=== PATIENT | female | born 1995 | race Hispanic/Latino ===

== ENCOUNTER 2021-08-26 21:52 | Outpatient (CLI) | payer OTHER ==
[2021-08-26 22:27] VITALS: BP 120/79
--- NOTE | 2021-08-27 01:13 | Ultrasound Report ---
ULTRASOUND BIOPHYSICAL PROFILE INDICATION / CLINICAL INFORMATION: decreased movement. Clinical Gestational Age (GA) in weeks, days: 30 weeks 5 days TECHNIQUE: Transabdominal. COMPARISON: None available. FINDINGS: BREATHING MOVEMENT = 2 GROSS BODY MOVEMENT = 2 TONE = 2 QUALITATIVE AMNIOTIC FLUID VOLUME = 2 TOTAL BIOPHYSICAL SCORE = 8/8 HEART RATE (beats per minute): 137 PRESENTATION: Cephalic. ADDITIONAL FINDINGS: None. IMPRESSION: 1. Biophysical Score = 8/8 Signer Name: Louisa Etienne MD Signed: 08/27/2021 1:08 AM Workstation Name: [id number]
== END 2021-08-27 01:39 | disposition home or self-care (01) ==
LOC: TRG 21:52 → APU 21:53 → TRG 08-27 01:39
PROVIDERS: ATTEND Obstetrics & Gynecology
DX: O26.893 Other specified pregnancy related conditions, third trimester (principal); R10.9 Unspecified abdominal pain; Z3A.30 30 weeks gestation of pregnancy
CPT/HCPCS: 59025; 76819

== ENCOUNTER 2021-09-20 19:01 | Outpatient (CLI) | payer OTHER ==
[2021-09-20] MEDS ORDERED: LACTATED RINGERS 500 ML IV ONE (19:17)
[2021-09-20 20:10] LABS: Bilirubin,Urine NEG (Negative); Blood,Urine NEG (Negative); Color,Urine Yellow (Yellow); Protein,Urine <15 mg/dL mg/dL (Negative); RBC,Urine < 1.0 /HPF (0.0-6.0); Urobilinogen,Urine < 2.0 mg/dL (<2.0)
[2021-09-20 20:12] LABS: WBC,Urine < 1.0 /HPF (0.0-6.0)
[2021-09-20] MEDS ORDERED: ACETAMINOPHEN 500 MG TAB PO ONE (20:45)
[2021-09-20 20:49] VITALS: BP 126/65
== END 2021-09-20 21:16 | disposition home or self-care (01) ==
LOC: TRG 19:01 → APU 19:03 → TRG 21:16
PROVIDERS: ATTEND Obstetrics & Gynecology
DX: O29.43 Spinal and epidural anesthesia induced headache during pregnancy, third trimester (principal); Z3A.34 34 weeks gestation of pregnancy
CPT/HCPCS: 81001

== ENCOUNTER 2021-10-13 11:51 | Inpatient (IN) | payer OTHER ==
[2021-10-13] MEDS ORDERED: MAGNESIUM SULFATE 4 GM/100 ML BAG IV ONE (11:58)
[2021-10-13] MEDS ORDERED: LACTATED RINGERS 1,000 ML IV SCH (12:00)
[2021-10-13] MEDS ORDERED: MAGNESIUM SULFATE 40GM/1000ML 40 GM/1,000 ML BAG IV SCH (12:00)
--- NOTE | 2021-10-13 12:21 | History and Physical Report ---
History of Present Illness Date of examination: 10/13/21 Date of admission: 10/13/21 11:58 History of present illness: pt presents for post problem vsit: c/o Headaches in the back of the head, shaking, feet and leg swelling, neck pain. BP after checking 165/100. @10:45a 176/97 per pt... ...................................................................Ramya Soares October 13, 2021 11:31 AM Mask, Patient denies fever, cough, shortness of breath and exposure to COVID-19. Sending patient to L&D for treatment of pre-e. Bed control called for admission ................ ...................................................Carmela Demarcus BURRELL October 13, 2021 11:44 AM Vital Signs: Patient Profile: 26 Years Old Female Height: 64 inches Weight: 216 pounds BMI: 37.07 Temp: 97.6 degrees F BP sittin / 96 (left arm) Past Medical History: Reviewed and updated today: Negative Past Medical History Past Surgical History: Reviewed and updated today: Appendectomy (2017) Right Shoulder (2018) Family History Summary: Other Family Member - Has No Family History of Ovarvian Cancer - Entered On: 03/31/2021 Other Family Member - Has No Family History of Colon Cancer - Entered On: 03/31/2021 Other Family Member - Has No Family History of Breast Cancer - Entered On: 03/31/2021 Social History: Marital Status:( same sex) Children: 0 Occupation: unemployed Smoking History: Patient is a former smoker. 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 Infection History Hx of STD: none Partner hx. of genital herpes: no Genetic History Congenital Heart Defect: Mom: no Dad: no Joey Disease: Mom: no Dad: no Thalassemia Mom: no Dad: no Neural Tube Defect Mom: no Dad: no Down's Syndrome Mom: no Dad: no Douglas-Sachs Mom: no Dad: no Sickle Cell Disease/Trait Mom: no Dad: no Hemophilia Mom: no Dad: no Muscular Dystrophy Mom: no Dad: no Cystic Fibrosis Mom: no Dad: no Monae Chorea Mom: no Dad: no Mental Retardation Mom: no Dad: no Fragile X Mom: no Dad: no Other Genetic/Chromosomal Disorder Mom: no Dad: no Child w/other defect Mom: no Dad: no Enviromental Exposures Xray Exposure: no Medication, drug, or alcohol use since LMP: no Chemical/Other Exposure: no Exposure to Cat Liter: yes Hx of Parvovirus (Fifth Disease): no Current Allergies (reviewed today): No known allergies Past History Past Medical History: other (SEE HPI) Past Surgical History: other (SEE HPI) 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: other (SEE HPI) Social history: other (SEE HPI) - Obstetrical History : 1 Medications and Allergies Allergies Allergy/AdvReac Type Severity Reaction Status Date / Time No Known Allergies Allergy Unverified 10/13/21 12:35 Home Medications Medication Instructions Recorded Confirmed Last Taken Type Ibuprofen [Motrin 800 MG tab] 800 mg PO Q8HR #30 tablet 10/11/21 10/13/21 10/12/21 20:30 Rx Active Meds: Active Medications Lactated Ringer's (Lactated Ringers) 1,000 mls @ 125 mls/hr IV DIRECT RAOUL Magnesium Sulfate (Magnesium Sulfate 4gm/100ml) 4 gm in 100 mls @ 300 mls/hr IV ONCE ONE Stop: 10/13/21 12:17 Magnesium Sulfate (Magnesium Sulfate 40gm/1000ml) 40 gm in 1,000 mls @ 50 mls/hr IV DIRECT RAOUL Labetalol HCl (Labetalol 200 Mg Tab) 200 mg PO BID RAOUL Review of Systems Eyes: blurred vision Cardiovascular: high blood pressure, leg edema Breasts: normal Genitourinary: deferred Rectal Exam: deferred Musculoskeletal: neck pain Neurological: headaches - Physical Exam Breasts: Positive: normal Abdomen: Positive: normal appearance, soft Extremities: Positive: edema Results Result Diagrams: 10/13/21 12:25 10/13/21 12:25 All other labs normal. Assessment and Plan Pt post 10/10/2021, presents to day with complaint of PARKER, visual d isturbances, BLE edema. Pt dx with GHTN during . new dx pre-e d/t cerebral symptoms. Admission orders in EMR. - Patient Problems (1) Pre-eclampsia, Current Visit: Yes Status: Acute Plan to address problem: Direct admit L&D Start 24 hr Mag Labetolol 200mg BID PO monitor symptoms Strict I&Os
[2021-10-13 13:09] LABS: Hematocrit 30.9 % (30.3-42.9); Hemoglobin 10.7 gm/dl (10.1-14.3); Mean Corpuscular HGB Conc 35 % (30-34); Mean Corpuscular Volume 94 fl (79-97); Platelet Count 220 K/mm3 (140-440); Red Cell Distribution Width 14.1 % (13.2-15.2)
[2021-10-13 13:29] LABS: Bilirubin,Urine NEG (Negative); Blood,Urine SM (Negative); Color,Urine Colorless (Yellow); Protein,Urine <15 mg/dL mg/dL (Negative); RBC,Urine < 1.0 /HPF (0.0-6.0); Urobilinogen,Urine < 2.0 mg/dL (<2.0)
[2021-10-13 13:33] LABS: Alanine Aminotransferase 12 units/L (7-56)
[2021-10-13] MEDS ORDERED: ACETAMINOPHEN 500 MG TAB PO ONE (13:39)
[2021-10-13] MEDS ORDERED: IBUPROFEN 800 MG TAB PO ONE (15:45)
[2021-10-13] MEDS ORDERED: HYDROcodone/ACETAMINOPHEN 5-325 MG TAB PO ONE (19:37)
[2021-10-13] MEDS ORDERED: IBUPROFEN 800 MG TAB PO PRN (20:12)
--- NOTE | 2021-10-14 00:28 | XRay Report ---
XR chest 1V ap INDICATION / CLINICAL INFORMATION: DECREASED SPO2. COMPARISON: None available. FINDINGS: SUPPORT DEVICES: None. HEART /PULMONARY VASCULATURE: Heart is accentuated by low lung volumes. Pulmonary vasculature appears congested. LUNGS / PLEURA: Mild patchy pulmonary opacities are present within the lungs, most pronounced in the right lung base. No sizable pleural effusion. No pneumothorax. IMPRESSION: Pulmonary vasculature congestion with mild basilar predominant parenchymal opacities in the lungs, fa vored to reflect edema. Unable to exclude superimposed pneumonia. Signer Name: Bashir Peralta MD Signed: 10/14/2021 12:23 AM Workstation Name: [id number]
--- NOTE | 2021-10-14 01:30 | Event Note ---
Date: 10/14/21 Pt noted to be breathing harder than normal, sats 93-98% on RA while sitting up but decreasing to the 80's while laying down. CXR shows lungs with vascular congestion and edema. Dr. Santillan made aware. Magnesium sulfate d/c'd. Lasix 40MG qday along with RENEE. Tiago to remain in place for accurate I&O. Cardiology consulted. Discussed plan of care with patient, all questions addressed.
[2021-10-14] MEDS: FUROSEMIDE 40 MG/4 ML INJ IV SCH ×2 (01:36→10:23)
[2021-10-14] MEDS ORDERED: BENZOCAINE/MENTHOL 20/0.5% TOP SPRAY 56 GM TP PRN (01:48)
[2021-10-14 01:57] LABS: Alanine Aminotransferase 13 units/L (7-56); Albumin 3.1 g/dL (3.9-5); Blood Urea Nitrogen 8 mg/dL (7-17); Calcium 7.5 mg/dL (8.4-10.2); Hemolysis Index 0
[2021-10-14 01:59] LABS: BUN/Creatinine Ratio 11
[2021-10-14] MEDS: BUTALB/ACETAMINOPHEN/CAFFEINE TAB PO PRN ×4 (02:23→20:56)
--- NOTE | 2021-10-14 07:32 | Progress Note ---
Assessment and Plan A: 26 y.o. s/p , re-admission for pre eclampsia. - Patient Problems (1) Pre-eclampsia, Current Visit: Yes Status: Acute Plan to address problem: Continue with care on labor and delivery. Awaiting cardiology consult and recommendations. Continue with O2 via NC for now. Continue to monitor blood pressures. Continue to monitor for s/sx of worsening pre elcampsia. Continue with Labetalol 200mg BID. Subjective - Subjective Date of service: 10/14/21 Principal diagnosis: readmit for pre eclampsia Interval history: Pt denies shortness of breath, upper abdominal pain, chest pain,feeling lightheaded, dizzy, or heart palpitations. Has a PARKER and states medications are not helping. : doing well Objective - Vital Signs Latest vital signs: Vital Signs Temp Pulse Resp BP BP Pulse Ox Pulse Ox 10/14/21 07:26 77 97 10/14/21 07:21 80 97 10/14/21 07:16 76 96 10/14/21 07:11 74 95 10/14/21 07:08 87 94 10/14/21 07:06 72 95 10/14/21 07:01 68 95 10/14/21 07:00 75 94 10/14/21 06:56 81 97 10/14/21 06:54 77 93 10/14/21 06:52 77 142/86 10/14/21 06:51 66 96 10/14/21 06:46 71 95 10/14/21 06:41 70 94 10/14/21 06:36 70 91 10/14/21 06:34 72 94 10/14/21 06:31 74 96 10/14/21 06:28 69 94 10/14/21 06:26 64 95 10/14/21 06:21 68 95 10/14/21 06:16 70 95 10/14/21 06:11 72 95 10/14/21 06:06 74 96 10/14/21 06:01 76 97 10/14/21 05:56 76 96 10/14/21 05:51 74 143/77 95 10/14/21 05:46 75 95 10/14/21 05:41 77 95 10/14/21 05:37 76 96 10/14/21 05:31 76 96 10/14/21 05:28 85 129/76 10/14/21 05:27 81 96 10/14/21 05:21 79 97 10/14/21 05:20 76 92 10/14/21 05:16 70 97 10/14/21 05:11 69 97 10/14/21 05:06 73 96 10/14/21 05:02 69 95 10/14/21 04:57 74 96 10/14/21 04:52 84 95 10/14/21 04:47 69 96 10/14/21 04:41 67 96 10/14/21 04:37 79 97 10/14/21 04:32 68 96 10/14/21 04:27 71 97 10/14/21 04:22 80 97 10/14/21 04:18 75 94 10/14/21 04:16 76 97 10/14/21 04:11 78 94 10/14/21 04:07 72 96 10/14/21 04:02 84 97 10/14/21 03:57 75 94 10/14/21 03:52 74 94 10/14/21 03:51 71 134/74 94 10/14/21 03:47 76 95 10/14/21 03:42 74 94 10/14/21 03:37 74 94 10/14/21 03:35 72 94 10/14/21 03:32 73 95 10/14/21 03:28 71 94 10/14/21 03:27 71 95 10/14/21 03:22 72 95 10/14/21 03:17 70 95 10/14/21 03:12 71 95 10/14/21 03:07 73 94 10/14/21 03:02 69 95 10/14/21 03:01 71 94 10/14/21 02:57 78 95 10/14/21 02:56 72 94 10/14/21 02:52 73 93 10/14/21 02:51 73 136/79 10/14/21 02:47 77 94 10/14/21 02:42 77 94 10/14/21 02:37 78 94 10/14/21 02:36 76 94 10/14/21 02:32 82 95 10/14/21 02:27 76 96 10/14/21 02:22 74 95 10/14/21 02:17 72 95 10/14/21 02:12 76 94 10/14/21 02:07 76 96 0223/22 02:02 76 96 10/14/21 01:57 76 96 10/14/21 01:52 67 150/77 97 10/14/21 01:47 71 99 10/14/21 01:42 78 100 10/14/21 01:37 77 100 10/14/21 01:32 73 99 10/14/21 01:27 82 90 10/14/21 01:22 78 87 10/14/21 01:17 82 89 10/14/21 01:12 83 90 10/14/21 01:07 80 91 10/14/21 01:02 79 90 10/14/21 00:58 98.3 F 10/14/21 00:57 89 89 10/14/21 00:56 88 10/14/21 00:52 80 88 10/14/21 00:51 76 132/78 10/14/21 00:47 77 88 10/14/21 00:42 78 88 10/14/21 00:36 80 89 10/14/21 00:32 84 89 10/14/21 00:27 88 93 10/14/21 00:22 78 92 10/14/21 00:17 80 90 10/14/21 00:12 85 94 10/14/21 00:10 90 10/14/21 00:07 76 86 10/14/21 00:03 77 149/76 10/14/21 00:02 79 86 10/13/21 23:57 79 85 10/13/21 23:52 79 87 10/13/21 23:51 78 160/79 10/13/21 23:47 78 88 10/13/21 23:42 79 88 10/13/21 23:37 80 89 10/13/21 23:32 79 90 10/13/21 23:27 82 90 10/13/21 23:22 79 89 10/13/21 23:17 87 91 10/13/21 23:16 91 10/13/21 23:11 81 92 10/13/21 23:06 80 91 10/13/21 23:05 78 94 10/13/21 23:01 84 90 10/13/21 22:56 84 90 10/13/21 22:51 77 139/78 10/13/21 22:50 80 87 02/22/22 22:46 79 88 0222 22:41 80 90 0222/22 22:36 83 91 0222/22 22:31 84 90 0222 22:26 83 91 02/22 22:21 83 91 0222 22:16 83 91 02/22 22:11 80 91 02/22 22:06 84 92 0222/22 22:01 80 92 0222 21:56 82 92 0222 21:51 80 136/79 93 0222/22 21:46 80 92 0222/22 21:41 80 92 02/22 21:36 80 94 0222 21:31 76 96 0222 21:26 80 94 0222 21:25 79 94 02/22 21:21 78 94 0222 21:16 79 94 02/22 21:11 82 96 02/22 21:09 86 94 0222 21:06 79 93 0222 21:01 77 94 0222 21:00 78 94 0222 20:56 77 95 02/22 20:53 83 93 0222/22 20:51 74 139/76 96 02/22 20:46 78 95 02/22 20:41 81 96 022222 20:36 81 95 02/22 20:35 80 94 02/22 20:31 83 94 02/22 20:28 83 94 0222 20:26 86 95 0222 20:22 88 94 0222/22 20:21 81 93 0222/22 20:16 84 94 0222/22 20:13 93 0222/22 20:11 79 93 02/22 20:06 80 93 02/22 20:02 79 93 02/22 20:01 86 93 0222/22 19:56 83 94 0222/22 19:55 89 94 0222/22 19:51 80 123/74 92 02/22/22 19:46 85 93 0222/22 19:41 84 92 0222/22 19:36 82 94 022222 19:31 86 92 02/22 19:29 86 93 10/13/21 19:26 85 90 10/13/21 19:21 85 91 10/13/21 19:16 84 92 10/13/21 19:11 83 93 10/13/21 19:09 84 94 10/13/21 19:06 83 94 10/13/21 19:03 83 94 10/13/21 19:01 84 93 10/13/21 18:57 93 10/13/21 18:56 98.0 F 80 14 138/74 95 95 10/13/21 18:51 78 138/76 95 10/13/21 18:47 81 94 10/13/21 18:46 81 96 10/13/21 18:41 82 97 10/13/21 18:36 81 98 10/13/21 18:31 82 97 10/13/21 18:26 83 97 10/13/21 18:21 78 97 10/13/21 18:16 85 97 10/13/21 18:11 86 96 10/13/21 18:06 85 97 10/13/21 18:01 82 97 10/13/21 17:56 87 97 10/13/21 17:51 80 135/81 97 10/13/21 17:46 78 97 10/13/21 17:41 79 98 10/13/21 17:36 97.6 F 84 14 134/82 134/82 97 10/13/21 17:31 84 97 10/13/21 17:26 84 97 10/13/21 17:21 87 97 10/13/21 17:16 77 97 10/13/21 17:11 87 96 10/13/21 17:10 92 H 93 10/13/21 17:06 85 95 10/13/21 17:02 75 154/91 94 10/13/21 17:01 84 96 10/13/21 16:56 76 97 10/13/21 16:54 78 94 10/13/21 16:51 79 151/92 94 10/13/21 16:46 77 94 10/13/21 16:41 85 94 10/13/21 16:36 82 95 10/13/21 16:34 78 94 10/13/21 16:31 74 95 10/13/21 16:28 81 94 10/13/21 16:26 83 93 0222/22 16:21 79 96 10/13/21 16:19 79 94 10/13/21 16:16 74 95 10/13/21 16:11 76 95 10/13/21 16:10 78 93 10/13/21 16:06 76 93 10/13/21 16:04 73 94 10/13/21 16:01 76 95 10/13/21 16:00 14 10/13/21 15:58 79 93 10/13/21 15:56 83 97 10/13/21 15:51 74 148/87 98 10/13/21 15:46 72 97 10/13/21 15:41 76 96 10/13/21 15:40 75 94 10/13/21 15:36 77 95 10/13/21 15:34 75 94 10/13/21 15:31 78 97 10/13/21 15:26 81 94 10/13/21 15:21 81 94 10/13/21 15:20 83 94 10/13/21 15:16 82 94 10/13/21 15:14 78 94 10/13/21 15:11 75 96 10/13/21 15:06 75 95 10/13/21 15:04 74 94 10/13/21 15:01 74 96 10/13/21 15:00 98.0 F 14 10/13/21 14:56 76 98 10/13/21 14:51 73 95 10/13/21 14:46 78 94 10/13/21 14:41 77 96 10/13/21 14:38 74 138/75 10/13/21 14:36 76 94 10/13/21 14:31 82 95 10/13/21 14:30 81 94 10/13/21 14:26 78 96 10/13/21 14:24 79 94 10/13/21 14:21 80 94 10/13/21 14:19 85 93 10/13/21 14:16 84 94 10/13/21 14:14 89 94 10/13/21 14:11 85 94 10/13/21 14:07 84 94 10/13/21 14:06 83 96 10/13/21 14:01 81 97 10/13/21 14:00 16 10/13/21 13:59 82 137/77 10/13/21 13:56 82 94 10/13/21 13:51 83 94 10/13/21 13:50 82 94 10/13/21 13:46 84 94 10/13/21 13:44 83 135/66 10/13/21 13:43 85 94 10/13/21 13:41 84 95 10/13/21 13:37 86 94 10/13/21 13:36 88 95 10/13/21 13:31 89 96 10/13/21 13:26 83 95 10/13/21 13:25 80 16 140/76 10/13/21 13:21 81 97 10/13/21 13:20 78 16 138/76 10/13/21 13:16 77 95 96 10/13/21 13:15 78 18 145/77 94 10/13/21 13:11 70 97 10/13/21 13:10 71 16 143/80 10/13/21 13:06 73 96 10/13/21 13:05 71 16 146/86 10/13/21 13:01 76 98 10/13/21 13:00 98.1 F 75 16 145/89 10/13/21 12:57 75 139/85 10/13/21 12:56 70 97 10/13/21 12:53 81 94 10/13/21 12:51 71 98 10/13/21 12:46 77 0 L 10/13/21 12:37 68 97 Intake and Output 10/13/21 10/14/21 10/14/21 22:59 06:59 14:59 Intake Total 1350 Output Total 2350 4550 Balance -1000 -4550 Intake: IV 150 Lactated Ringers 1,000 ml 150 @ 125 mls/hr IV DIRECT RAOUL Rx#:[id number] Oral 1200 Output: Urine 2350 4550 Indwelling Catheter 2350 4550 Other: Total, Intake Amount 500 Total, Output Amount 450 400 - Exam Narrative Exam: Magnesium currently off d/t chest x-ray showing some pulmonary edema. Awaiting cardiology consult and recommendations.Ordoñez draining an adequate amount of clear yellow urine. Blood pressure ranges are 120's-130's/70-90's. Pt also currently on 1L NC with pulse ox ranges from 93-95%. Breasts: Present: engorged (Soft, pt is pumping. ) Cardiovascular: Present: Normal S1, Normal S2 Lungs: Present: Clear to auscultation, Other (Diminished in the bases.) Abdomen: Present: normal appearance, soft, normal bowel sounds Extremities: Present: edema (+1 to bilateral hands and feet) Deep Tendon Reflex Grade: Normal +2 - Labs Labs: Abnormal lab results 10/13/21 10/13/21 10/13/21 Range/Units 12:25 12:25 14:50 RBC 3.30 L (3.65-5.03) M/mm3 MCH 33 H (28-32) pg MCHC 35 H (30-34) % Chloride (98-107) mmol/L Carbon Dioxide (22-30) mmol/L Calcium (8.4-10.2) mg/dL Magnesium 4.10 H (1.7-2.3) mg/dL Alkaline Phosphatase (35-129) units/L Lactate Dehydrogenase 300 H (91-180) units/L Total Protein (6.3-8.2) g/dL Albumin (3.9-5) g/dL 10/14/21 10/14/21 10/14/21 Range/Units 00:14 01:41 05:37 RBC (3.65-5.03) M/mm3 MCH (28-32) pg MCHC (30-34) % Chloride 108.9 H (98-107) mmol/L Carbon Dioxide 17 L (22-30) mmol/L Calcium 7.5 L (8.4-10.2) mg/dL Magnesium 4.40 H 3.30 H (1.7-2.3) mg/dL Alkaline Phosphatase 152 H (35-129) units/L Lactate Dehydrogenase (91-180) units/L Total Protein 6.0 L (6.3-8.2) g/dL Albumin 3.1 L (3.9-5) g/dL
--- NOTE | 2021-10-14 10:38 | Consultation ---
History of Present Illness Consult date: 10/14/21 Consult reason: hypertension, other (Edema) History of present illness: The patient is a 26-year-old woman who completed a a week ago. She states that she was induced at 37 weeks, due to progressive, gestational hypertension and edema. Over the past 2 days, she began experiencing increasing headache and dizziness, which prompted her to take her blood pressure at home. Systolic blood pressure was 175 and she presented to her OB's office where the severe hypertension was confirmed. She was subsequently referred to the hospital for admission and further evaluation. This is her first , and she has no prior cardiac history. There is no chest pain, no shortness of breath, no palpitations. She states that the lower extremity edema has been progressive through and became worse after her labor. She is on no medications and was not on antihypertensive therapy for her gestational hypertension. Work-up in this hospital so far: An ECG is pending. Chest x-ray shows an overlay of soft tissue, but no evidence of significant interstitial edema, and normal sized cardiac silhouette. Patient is currently on bedrest, appears comfortable with no acute distress. Current systolic blood pressure is in the 140s. Past History Past Medical History: hypertension Social history: other (SEE HPI) Medications and Allergies Allergies Allergy/AdvReac Type Severity Reaction Status Date / Time No Known Allergies Allergy Unverified 10/13/21 12:35 Home Medications Medication Instructions Recorded Confirmed Last Taken Type Ibuprofen [Motrin 800 MG tab] 800 mg PO Q8HR #30 tablet 10/11/21 10/13/21 10/12/21 20:30 Rx Active Meds: Active Medications Acetaminophen/Butalbital/Caffeine (Butalb/Acetaminophen/Caffeine Tab) 2 tab PO Q4H PRN PRN Reason: Headache Last Admin: 10/14/21 02:23 Dose: 2 tab Benzocaine/Menthol (Benzocaine/Menthol 20/0.5% Top [place] 56 Gm) 1 spray TP TID PRN PRN Reason: carey pain Furosemide (Furosemide 40 Mg/4 Ml Inj) 40 mg IV QDAY RAOUL Last Admin: 10/14/21 10:23 Dose: 40 mg Ibuprofen (Ibuprofen 800 Mg Tab) 800 mg PO Q8H PRN PRN Reason: Pain, Mild (1-3) Last Admin: 02/23/22 10:24 Dose: 800 mg Labetalol HCl (Labetalol 200 Mg Tab) 200 mg PO BID RAOUL Last Admin: 10/14/21 10:21 Dose: 200 mg Review of Systems Cardiovascular: edema, no chest pain, no orthopnea, no palpitations, no rapid/irregular heart beat, no syncope, no lightheadedness, no shortness of breath Physical Examination Vital Signs Pulse Ox 89 10/10/21 19:31 General appearance: no acute distress HEENT: Positive: PERRL Neck: Positive: neck supple Cardiac: Positive: Reg Rate and Rhythm Lungs: Positive: Decreased Breath Sounds Neuro: Positive: Grossly Intact Abdomen: Positive: Soft Female genitourinary: deferred Skin: Positive: Clear Extremities: Present: +1 Edema Results 10/13/21 12:25 10/14/21 01:41 Cardiac Enzymes 10/13/21 10/14/21 Range/Units 12:25 01:41 AST 20 20 (5-40) units/L Lactate Dehydrogenase 300 H (91-180) units/L CBC 10/13/21 Range/Units 12:25 WBC 10.9 (4.5-11.0) K/mm3 RBC 3.30 L (3.65-5.03) M/mm3 Hgb 10.7 (10.1-14.3) gm/dl Hct 30.9 (30.3-42.9) % Plt Count 220 (140-440) K/mm3 Comprehensive Metabolic Panel 10/13/21 10/14/21 Range/Units 12:25 01:41 Sodium 143 (137-145) mmol/L Potassium 3.8 (3.6-5.0) mmol/L Chloride 108.9 H (98-107) mmol/L Carbon Dioxide 17 L (22-30) mmol/L BUN 8 (7-17) mg/dL Creatinine 0.6 0.7 (0.6-1.2) mg/dL Glucose 96 (65-100) mg/dL Calcium 7.5 L (8.4-10.2) mg/dL AST 20 20 (5-40) units/L ALT 12 13 (7-56) units/L Alkaline Phosphatase 152 H (35-129) units/L Total Protein 6.0 L (6.3-8.2) g/dL Albumin 3.1 L (3.9-5) g/dL Assessment and Plan - Patient Problems (1) Uncontrolled hypertension Current Visit: Yes Status: Acute Plan to address problem: Patient who recently completed a marked by progressive gestational hypertension, admitted with symptoms of uncontrolled hypertension in the . She has mild lower extremity edema, but no clinical or radiologic evidence of pulmonary edema. We will order a twelve-lead EKG, and echocardiogram for left ventricular function and valvular function assessment. Treatment with diuretics and optimal antihypertensive management. Thank you for this consultation.
[2021-10-14] MEDS: NIFEdipine XL 30 MG TAB PO SCH (10:45)
--- NOTE | 2021-10-14 11:48 | Electrocardiograph Report ---
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
--- NOTE | 2021-10-14 17:01 | Event Note ---
Date: 10/14/21 Patient's cardiac studies as follows: ECG is normal sinus rhythm, normal ECG. Echocardiogram shows normal left ventricular systolic function, ejection fraction 55-60%, no significant valvular lesions. No further cardiac work-up, continue blood pressure management and diuretics as previously recommended.
--- NOTE | 2021-10-14 18:21 | Event Note ---
Date: 10/14/21 (Pt with PARKER) Pt with c/o a continued PARKER mostly occipital and sometime frontal. Denies blurred vision, spots before her eyes. States no relief with medications. Will order anesthesia consult for spinal PARKER evaluation.
--- NOTE | 2021-10-14 18:36 | Event Note ---
Date: 10/14/21 Anesthesia consulted for possible PDPH. Patient's chart reviewed, no mention of wet tap on the procedure note. Upon evaluation and questioning of the patient, she did not exhibit typical S&S of a PDPH. No postural component to the PARKER. Her options for treatment were presented as conservative management vs EBP. She preferred to continue with conservative treatment at this time after discussing risks/benefits and likelihood of improvement of symptoms from an EBP.
[2021-10-15] MEDS: BUTALB/ACETAMINOPHEN/CAFFEINE TAB PO PRN ×3 (01:02→17:08)
--- NOTE | 2021-10-15 08:10 | Progress Note ---
Assessment and Plan Pt sleeping with unlabored breathing, VSSAF. b/p's currently well controlled with PO meds. She was easily awakened - denies complaints of PARKER/visual changes/dizzness or chest pain. Cardiology consult completed and normal. Will continue to monitor and if stable, will consider d/c home this afternoon with office f/u within a week. - Patient Problems (1) Pre-eclampsia, Current Visit: Yes Status: Acute Plan to address problem: Labetalol 200mg Po BID Procardia 30mg QD Subjective - Subjective Date of service: 10/15/21 Principal diagnosis: readmit for pre eclampsia Interval history: pt presents for post problem vsit: c/o Headaches in the back of the head, shaking, feet and leg swelling, neck pain. BP after checking 165/100. @10:45a 176/97 per pt......................................................................Ramyamarii Soares October 13, 2021 11:31 AM Mask, Patient denies fever, cough, shortness of breath and exposure to COVID-19. Sending patient to L&D for treatment of pre-e. Bed control called for admission ................................................. ..................Carmela Tracy CNM October 13, 2021 11:44 AM Vital Signs: Patient Profile: 26 Years Old Female Height: 64 inches Weight: 216 pounds BMI: 37.07 Temp: 97.6 degrees F BP sittin / 96 (left arm) Past Medical History: Reviewed and updated today: Negative Past Medical History Past Surgical History: Reviewed and updated today: Appendectomy (2017) Right Shoulder (2018) Family History Summary: Other Family Member - Has No Family History of Ovarvian Cancer - Entered On: 03/31/2021 Other Family Member - Has No Family History of Colon Cancer - Entered On: 03/31/2021 Other Family Member - Has No Family History of Breast Cancer - Entered On: 03/31/2021 Social History: Marital Status:( same sex) Children: 0 Occupation: unemployed Smoking History: Patient is a former smoker. 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 Infection History Hx of STD: none Partner hx. of genital herpes: no Genetic History Congenital Heart Defect: Mom: no Dad: no Joey Disease: Mom: no Dad: no Thalassemia Mom: no Dad: no Neural Tube Defect Mom: no Dad: no Down's Syndrome Mom: no Dad: no Douglas-Sachs Mom: no Dad: no Sickle Cell Disease/Trait Mom: no Dad: no Hemophilia Mom: no Dad: no Muscular Dystrophy Mom: no Dad: no Cystic Fibrosis Mom: no Dad: no [place] Chorea Mom: no Dad: no Mental Retardation Mom: no Dad: no Fragile X Mom: no Dad: no Other Genetic/Chromosomal Disorder Mom: no Dad: no Child w/other defect Mom: no Dad: no Enviromental Exposures Xray Exposure: no Medication, drug, or alcohol use since LMP: no Chemical/Other Exposure: no Exposure to Cat Liter: yes Hx of Parvovirus (Fifth Disease): no Current Allergies (reviewed today): No known allergies Patient reports: appetite normal, voiding normally, pain well controlled, ambulating normally, no dizzy ambulation, no nauseated [place]: doing well (baby at bedside, pt's partner present), nursing well Objective - Vital Signs Latest vital signs: Vital Signs Temp Pulse Resp BP BP Pulse Ox Pulse Ox 10/15/21 04:57 98.3 F 66 20 129/71 92 10/15/21 02:02 18 10/15/21 01:02 18 10/15/21 00:09 97.9 F 75 20 125/67 92 10/14/21 21:56 18 10/14/21 21:00 18 99 10/14/21 20:59 76 119/67 10/14/21 20:56 18 10/14/21 20:17 76 119/67 95 10/14/21 17:53 97.9 F 76 18 130/69 96 10/14/21 13:45 98 F 66 20 135/72 95 10/14/21 13:20 95 10/14/21 12:42 75 94 10/14/21 12:37 71 95 10/14/21 12:36 80 94 10/14/21 12:32 73 94 10/14/21 12:29 78 94 10/14/21 12:27 75 94 10/14/21 12:24 76 94 10/14/21 12:22 73 95 10/14/21 12:17 76 96 10/14/21 12:12 81 96 10/14/21 12:10 80 94 10/14/21 12:07 76 95 10/14/21 12:02 74 95 10/14/21 12:00 75 94 10/14/21 11:57 76 93 10/14/21 11:55 75 94 10/14/21 11:52 73 96 10/14/21 11:51 72 118/67 10/14/21 11:50 71 94 10/14/21 11:47 77 95 10/14/21 11:43 91 H 94 10/14/21 11:42 76 95 10/14/21 11:38 74 94 10/14/21 11:37 72 95 10/14/21 11:32 72 95 10/14/21 11:27 87 94 10/14/21 11:22 81 93 10/14/21 11:17 74 93 10/14/21 11:16 77 94 10/14/21 11:12 69 93 10/14/21 11:10 71 94 10/14/21 11:07 75 94 10/14/21 11:02 75 94 10/14/21 10:57 72 92 10/14/21 10:55 93 H 92 10/14/21 10:52 79 94 10/14/21 10:51 77 123/75 10/14/21 10:47 91 H 93 10/14/21 10:42 74 94 10/14/21 10:37 78 93 10/14/21 10:36 78 94 10/14/21 10:32 80 95 10/14/21 10:31 86 94 10/14/21 10:27 80 97 10/14/21 10:24 16 10/14/21 10:22 81 96 10/14/21 10:20 82 94 10/14/21 10:17 87 95 10/14/21 10:12 87 97 10/14/21 10:07 82 98 10/14/21 10:02 75 98 10/14/21 09:57 73 98 10/14/21 09:52 90 98 10/14/21 09:51 79 133/73 94 10/14/21 09:47 89 97 10/14/21 09:45 65 92 10/14/21 09:42 85 97 10/14/21 09:37 79 97 10/14/21 09:32 85 97 10/14/21 09:27 80 97 10/14/21 09:22 81 96 10/14/21 09:17 78 97 10/14/21 09:12 80 97 10/14/21 09:07 80 97 10/14/21 09:02 87 96 10/14/21 08:57 80 97 10/14/21 08:52 71 146/84 97 10/14/21 08:51 70 93 10/14/21 08:46 82 95 98 10/14/21 08:44 98 H 92 10/14/21 08:41 98.8 F 89 16 97 10/14/21 08:36 75 97 10/14/21 08:31 87 96 10/14/21 08:26 80 97 10/14/21 08:21 76 97 10/14/21 08:16 79 97 10/14/21 08:11 72 97 Intake and Output 10/14/21 10/15/21 10/15/21 23:59 07:59 15:59 Intake Total 600 120 Output Total 700 Balance 600 -580 Intake: Oral 600 120 Output: Urine 700 Indwelling Catheter 400 Void 300 Other: Total, Intake Amount 480 120 Total, Output Amount 300 Voiding Method Bedside Commode # Voids 1 Void 1 1 # Bowel Movements 1 - Exam Breasts: Present: Cardiovascular: Present: Regular rate Lungs: Present: Clear to auscultation, Normal air movement Abdomen: Present: normal appearance, soft Extremities: Present: edema Deep Tendon Reflex Grade: Normal +2
[2021-10-15] MEDS: NIFEdipine XL 30 MG TAB PO SCH (10:23)
[2021-10-15] MEDS: FUROSEMIDE 40 MG/4 ML INJ IV SCH (12:06)
--- NOTE | 2021-10-15 15:55 | Discharge Summary ---
Providers - Providers Date of Admission: 10/13/21 11:58 Date of discharge: 10/15/21 Attending physician: ZAY ARSHAD 10/14/21 01:41 Consult to Physician [CONS] Routine Comment: Consulting Provider: COLTEN MCCLELLAN Physician Instructions: Reason For Exam: Pulomonary edema; pre-e, day 4 10/14/21 17:45 Consult to Anesthesiology [CONS] Urgent Consulting Provider: MONISHA QUIROS Reason For Exam: Possible spinal headache Primary care physician: ITZ LOPEZ MD Hospitalization Reason for admission: other ( pre-e) complications: other ( pre-e) Hospital course: blood pressure management, blood patch for spinal PARKER Condition at discharge: Good Disposition: 01 HOME / SELF CARE / HOMELESS - Discharge Diagnoses (1) Pre-eclampsia, Status: Acute Plan - Discharge Medications Prescriptions: labetaloL [Labetalol 200mg TAB] 200 mg PO BID #60 tab Furosemide [Lasix TAB] 40 mg PO QDAY #5 tablet NIFEdipine XL [Procardia Xl] 30 mg PO QDAY #30 tablet - Provider Discharge Summary Activity: routine, no sex for 6 weeks, no heavy lifting 4 weeks, no strenuous exercise Diet: other (low sodium) Additional instructions: [] Smoking cessation referral if applicable(refer to patient education folder for contact #) [] Refer to [facility]'s [facility] Booklet Call your doctor immediately for: * Fever > 100.5 * Heavy vaginal bleeding ( >1 pad per hour) * Severe persistent headache * Shortness of breath * Reddened, hot, painful area to leg or breast * Drainage or odor from incision. * Keep incision clean and dry at all times and follow doctor's instructions regarding bathing/showering - Follow up plan Follow up: ITZ LOPEZ MD [Primary Care Provider] - 7 Days (Please call [phone] to schedule appointment in office for blood pressure check early next week. Continue to check your blood pressure at home and call office for any readings greater than 140/90. Your prescriptions have been sent to the [facility] in [place].)
--- NOTE | 2021-10-15 16:45 | Progress Note ---
Subjective Date of service: 10/15/21 Principal diagnosis: readmit for pre eclampsia Interval history: Anesthesia follow up for possible PDPH. Patient's chart reviewed. Walking in the hallway, sitting in up in bed. Able to hold baby and visit with family. Describes as mild frontal headache with mild neck pain. No postural component, nausea, vomiting, and visual sensitivity. Her options for treatment were presented as conservative management vs EBP. She preferred to continue with conservative treatment at this time after discussing risks/benefits and likelihood of improvement of symptoms from an EBP. She would like to be discharged home with pain medication and will continue to monitor headache. If her symptoms worsen or do not improve she should return NONA. Objective - Constitutional Vitals: Vital Signs - 12hr 10/15/21 10/15/21 10/15/21 04:57 07:28 08:00 Temperature 98.3 F 98.7 F Pulse Rate 66 71 Respiratory 20 18 18 Rate Blood Pressure 129/71 135/66 O2 Sat by Pulse 92 90 98 Oximetry 10/15/21 10/15/21 10:23 12:44 Temperature 99.1 F Pulse Rate 69 76 Respiratory 20 Rate Blood Pressure 134/80 122/78 O2 Sat by Pulse 97 Oximetry - Labs CBC & Chem 7: 10/13/21 12:25 10/14/21 01:41
[2021-10-15 17:51] VITALS: BP 122/74
== END 2021-10-15 18:00 | disposition home or self-care (01) | DRG 776 ==
LOC: 3A 11:51 → UNDOADMIN 11:51 → LD 11:58 → OB 10-14 13:00
PROVIDERS: ADMIT Obstetrics & Gynecology; ATTEND Obstetrics & Gynecology
DX: O14.95 Unspecified pre-eclampsia, complicating the puerperium (principal); Z20.822 Contact with and (suspected) exposure to COVID-19
CPT/HCPCS: 36415; 71045; 80053; 81001; 82565; 83615; 83735; 84450; 84460; 84550; 85027; 93005; 93010; 93306; G0378; C8929; J1940; J3475; J7120; U0003